=== PATIENT | female | born 1975 | race Caucasian/White ===

== ENCOUNTER 2021-06-02 08:53 | Outpatient (CLI) | payer BC | END 2021-06-02 08:54 | disposition home or self-care (01) | LOC: CSHMAMMO 08:53 | PROVIDERS: ATTEND Obstetrics & Gynecology | DX: Z12.31 Encounter for screening mammogram for malignant neoplasm of breast (principal) | CPT/HCPCS: 77063; 77067 ==

== ENCOUNTER 2022-06-13 13:58 | Outpatient (CLI) | payer BC | END 2022-06-13 13:59 | disposition home or self-care (01) | LOC: CSHMAMMO 13:58 | PROVIDERS: ATTEND Obstetrics & Gynecology | DX: Z12.31 Encounter for screening mammogram for malignant neoplasm of breast (principal); Z91.89 Other specified personal risk factors, not elsewhere classified | CPT/HCPCS: 77063; 77067 ==

== ENCOUNTER 2023-06-27 13:02 | Outpatient (CLI) | payer BC | END 2023-06-27 13:03 | disposition home or self-care (01) | LOC: CSHMAMMO 13:02 | PROVIDERS: ATTEND Obstetrics & Gynecology | DX: Z12.31 Encounter for screening mammogram for malignant neoplasm of breast (principal) | CPT/HCPCS: 77063; 77067 ==